=== PATIENT | female | born 1980 ===

== ENCOUNTER 2020-08-10 12:30 | Outpatient (RCR) | payer BC, SELFPAY ==
--- NOTE | 2020-07-23 14:01 | PC.ADMIT ---
Addendum entered by Svetlana Desir RN 07/23/20 14:12: Patient gave verbal permission to Fax her a Copy Of her Safety Plan. Does not want it Emailed. Original Note: Patient started the PHP program today on the advise of her therapist d/t mood instability. Patient reports that her mood has been unstable and therapy is not enough to be helpful. Feelings of hopelessness. Denied current SI. Gave verbal permission to email her a copy of her Safety Plan. Patient agreed to utilize safety Plan if feeling unsafe. Patient does have a hx of overdosing on pills with ETOH as a teenager. Medical issues documented. Patient did state that her BP runs low and sometimes faints if she stands up too quickly. Stated her mother has the same issues. Patient fluid intake could improve, education provided. Medication reconciled with patient and patients pharmacy. Pt reports that she has not been taking Gabapentin as prescribed and will take 3 tabs PRN instead of the 1-2 tabs prescribed. Dixie Oliva APRN is aware.
--- NOTE | 2020-07-24 16:48 | HO.PS.ADMBH ---
HPI Chief Complaint: DEPRESSION Sources of Information: patient interviewed and chart reviewed Additional Sources of Information: Eval completed on 07/23/20. 40 yo female, referred by outpatient therapist. Reports a rapid increase in depressive sx with irritability, guilt, helplessness, hopelessness,fatigue- intense and overwhelming where at times she is not able to speak clearly has emotioal numbing (gabapentin helps with these episodes), anhedonia, sleep disturbance,SI one week HEAD CUSTODIAN. Reports hx of mild hypomanic episodes where from time to time she has bursts of energy, ideas which ends with her feeling foolish regarding her goals during that brief time. Reports an addiction history- last week almost slipped with nicotine, attempting to self-regulate with food as well. 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 Past Psychiatric History: Therapy with Alex Duncan for ~7 years, PCP is her prescribing clinician Yandy Skinner ~10 years. IP 21 years ago s/p OP Trials-Prozac, Zoloft, Remeron, Buspirone, Wellbutrin, Seroquel, Hydroxyzine, Clonidine, Propranolol, Ativan, Effexor Medical Evaluation Reviewed: No PHP Pt. No medical assessment available from PCP at this time. [facility] Medical History (Updated 07/24/20 @ 17:18 by Emperatriz York APRN) Bulging discs Intussusception intestine Irritable bowel syndrome (IBS) Migraine Sciatica Spinal stenosis Tennis elbow Surgical History (Updated 07/23/20 @ 13:42 by Svetlana Desir RN) deliv NOS-unsp Family History: Depression, Anxiety, Addiction Social History: Pt works as a psychotropic medication prescriber. She is , lives with spouse and 2 childhren Substance History: Nicotine-stopped 2002; Albuterol over use-stopped 2003; ADHD medications-stopped 1998; Temazepam overuse-stopped 2002; Pain meds-stopped 2003; Acid, Mushrooms-stopped 2001; Alcohol-stopped 2002; hx of compulsions-sexual by history, not current and video games-stopped 2018. Hx of OD in adolescence-alcohol/sleeping pills. Attends AA, has sponsorship Trauma History: Emotional- father Environmental-invalidation Meds/Allergies Meds Home Medications Medication Instructions Recorded Confirmed Type bupropion HCl [Wellbutrin XL] 450 mg PO QAM 07/23/20 07/23/20 History oslrijivqo-tmccxstvdwwfu-erwp 1 cap PO Q6H PRN 07/23/20 07/23/20 History diphenhydramine HCl [Benadryl] 25 mg PO BEDTIME PRN 07/23/20 07/23/20 History gabapentin 1 - 2 dose PO DAILY PRN 07/23/20 07/23/20 History melatonin 3 - 6 mg PO BEDTIME 07/23/20 07/23/20 History ondansetron 4 mg PO Q8H PRN 07/23/20 07/23/20 History sertraline 200 mg PO DAILY 07/23/20 07/23/20 History Allergies Allergies Allergy/AdvReac Type Severity Reaction Status Date / Time No Known Allergies Allergy Verified 07/23/20 08:58 Mental Status Exam Mental Status Exam Narrative: Well-engaged. Discussed difficulty in being a clinician and patient. Patient Appearance: Well Grooomed, Fatigued and Appropriate Patient Orientation: Person, Place, Time and Situation Level of Consciousness: Awake, Appropriate and Alert Patient Behavior: Appropriate, Cooperative, Anxious, Fatigued and Good Eye Contact Mood Description: Calm, Appropriate, Depressed, Anxious, Sad and Apprehensive Affect Description: Calm, Depressed, Flat, Sad, Nervous and Apprehensive Patient Cognition Impaired: No Ability to Follow Directions: Excellent Speech Pattern: Clear, Appropriate and Coherent Memory Description: Intact Hallucinations: None Delusions: Not Present Thought Process: Intact, Rumination (worry) and Goal Oriented Thought Content: positive for Intact, positive for Logical and positive for Suicidal Ideation (HEAD CUSTODIAN) Depressive Symptoms: Increased Anxiety Judgement: Good Assessment & Plan Patient educated on: therapeutic strategies Informed Consent: understands Reason for continued partial hosp. stay Substantial Risk for: inability to function and rapid decompensation Certification I certify that partial hospital treatment is medically necessary due to the symptoms and problems resulting from the patient's mental illness and the failure to treat the patient at the partial hospital level of care would likely result in the patient requiring inpatient psychiatric care which could not be prevented at a less intensive level of care.
--- NOTE | 2020-07-27 10:14 | HO.PHPPROGNO ---
Subjective Subjective Date of Service: 07/26/20 Reason For Visit: DEPRESSION Interim History: Carina reports she has initiated Lamictal and is tolerating it. She is more comfortable with the group process and today describes therapy group as an ecosystem of healing for her. She is able to be present as herself and offer her expertise guided by her experience which she finds healing for her. Yesterday was difficult with some SI without plan or intent. She was able to reach out to her therapist. She has also been able to allow some help to come into work so she may have time for self care. Medication Compliance: Yes Side effects from medications: No Attending Groups: Yes Mental Status Exam Mental Status Exam Patient Orientation: Person, Place, Time and Situation Level of Consciousness: Awake and Appropriate Patient Behavior: Appropriate Mood Description: Calm, Appropriate and Depressed Affect Description: Calm, Appropriate and Flat Patient Cognition Impaired: No Ability to Follow Directions: Excellent Speech Pattern: Clear Memory Description: Intact Hallucinations: None Delusions: Not Present Thought Process: Intact Thought Content: positive for Intact Depressive Symptoms: Increased Anxiety, Diff. Making Decisions, Hopelessness, Unhappiness, Increased Fatigue, Thoughts of /Suicide (passive-yesterday with intervention by OP team), Loss of Energy and Difficulty Concentrating (at times) Judgement: Good Assessment & Plan Patient educated on: medication risk/benefits Guardian/Caregiver educated on: medication risk/benefits Informed Consent: understands and further education needed Reason for contiued partial hosp. stay Substantial Risk for: harm to self, inability to function and rapid decompensation Certification I certify that partial hospital treatment is medically necessary due to the symptoms and problems resulting from the patient's mental illness and the failure to treat the patient at the partial hospital level of care would likely result in the patient requiring inpatient psychiatric care which could not be prevented at a less intensive level of care. Greater than 50% of the session was spent on counseling and/or coordination of care Discharge Plan Discharge Attending provider: Nataliia Narvaez Additional Instructions: 07/23/20: Lamictal 25 mg daily initiation Medications: New lamotrigine [Lamictal] 25 mg tablet 25 mg PO DAILY 14 Days Qty: 14 RF: 0 bupropion HCl [Wellbutrin XL] 300 mg tablet extended release 24 hr 300 mg PO QAM Qty: 30 RF: 0 No Action sertraline 100 mg Tablet 200 mg PO DAILY RF: 0 bupropion HCl [Wellbutrin XL] 150 mg Tablet Extended Release 24 Hr 450 mg PO QAM RF: 0 gabapentin 100 mg 1 - 2 dose PO DAILY PRN (Reason: Anxiety) RF: 0 melatonin 3 mg Capsule 3 - 6 mg PO BEDTIME RF: 0 emycxoixso-zelvmtgtjaven-aier 50-325-40 mg Capsule 1 cap PO Q6H PRN (Reason: Migraine Headache) RF: 0 diphenhydramine HCl [Benadryl] 25 mg Capsule 25 mg PO BEDTIME PRN (Reason: Insomnia) RF: 0 ondansetron 4 mg Tablet,Disintegrating 4 mg PO Q8H PRN (Reason: Nausea) RF: 0
--- NOTE | 2020-07-31 16:47 | HO.PHPPROGNO ---
Subjective Subjective Date of Service: 07/31/20 Reason For Visit: DEPRESSION Interim History: Carina describes a tough weekend. She increased Gabapentin to 300 mg bid. Reports symptoms of panic, racing thoughts, increase in depression, suicidal thoughts without plan or intent. Feeling vulnerable in current world environment with multiple stressors. Working in AA on spiritual awakening. Gabapentin increase felt helpful, denies numbing. Mood however over the weekend felt labile. Discussion of ongoing Lamictal titration-scheduled to increase to 50 mg-no adverse effects. Discussion of augmentation-Abilify (used by history), Rexulti, possibly [place] Medication Compliance: Yes Side effects from medications: No Attending Groups: Yes (Attending AA over the weekend-virtual) Review of Systems Review of Systems Yes all other systems are reviewed and are negative Psychiatric: Reports anxiety, Reports depression, Reports difficulty concentrating, Reports mood swings, Reports panic attacks, Reports suicidal ideation (passive SI without plan or intent) and Reports other (racing thoughts, lability) Mental Status Exam Mental Status Exam Patient Orientation: Person, Place, Time and Situation Level of Consciousness: Awake, Appropriate and Alert Patient Behavior: Appropriate, Talkative, Cooperative and Anxious Mood Description: Calm, Appropriate, Constricted, Anxious, Sad and Nervous Affect Description: Calm, Appropriate, Constricted, Anxious, Sad and Nervous Patient Cognition Impaired: No Ability to Follow Directions: Excellent Speech Pattern: Clear and Appropriate Memory Description: Intact Hallucinations: None Delusions: Not Present Thought Process: Intact Thought Content: positive for Intact and positive for Goal Oriented Depressive Symptoms: Increased Anxiety Judgement: Good Assessment & Plan Patient educated on: medication risk/benefits and therapeutic strategies Informed Consent: understands and further education needed Reason for contiued partial hosp. stay Substantial Risk for: inability to function and rapid decompensation Certification I certify that partial hospital treatment is medically necessary due to the symptoms and problems resulting from the patient's mental illness and the failure to treat the patient at the partial hospital level of care would likely result in the patient requiring inpatient psychiatric care which could not be prevented at a less intensive level of care. Greater than 50% of the session was spent on counseling and/or coordination of care Discharge Plan Discharge Attending provider: Nataliia Narvaez Additional Instructions: 07/23/20: Lamictal 25 mg daily initiation 07/31/20 [place] 150 mg HS Medications: New lamotrigine [Lamictal] 25 mg tablet 25 mg PO DAILY 14 Days Qty: 14 RF: 0 bupropion HCl [Wellbutrin XL] 300 mg tablet extended release 24 hr 300 mg PO QAM Qty: 30 RF: 0 lithium carbonate 150 mg capsule 150 mg PO BEDTIME Qty: 14 RF: 0 No Action sertraline 100 mg Tablet 200 mg PO DAILY RF: 0 bupropion HCl [Wellbutrin XL] 150 mg Tablet Extended Release 24 Hr 450 mg PO QAM RF: 0 gabapentin 100 mg 1 - 2 dose PO DAILY PRN (Reason: Anxiety) RF: 0 melatonin 3 mg Capsule 3 - 6 mg PO BEDTIME RF: 0 xcikastwqx-laafacxdkiwgs-recy 50-325-40 mg Capsule 1 cap PO Q6H PRN (Reason: Migraine Headache) RF: 0 diphenhydramine HCl [Benadryl] 25 mg Capsule 25 mg PO BEDTIME PRN (Reason: Insomnia) RF: 0 ondansetron 4 mg Tablet,Disintegrating 4 mg PO Q8H PRN (Reason: Nausea) RF: 0
--- NOTE | 2020-08-03 15:46 | P.PNPSP_ITS ---
Subjective Subjective Date of Service: 08/03/20 Reason For Visit: DEPRESSION Interim History: Carina reports depressive sx have lifted. She is more actively engaged in AA and in a better place that when she initiated PHP. However, there is a possible med SE. Sx started before initiation of [place]. Reports L Foot, outer arch area a feeling of vibration continuously since 07/31. By hx Topiramate caused RLS-with pt's recent increase in Gabapentin along with Lamictal she wonders if this is a SE. Also, she reports a hx of spinal stenosis and bulging discs. She stopped PT and is scheduled to re-initiate this treatment the week of . Discussed possible interventions Medication Compliance: Yes Side effects from medications: Yes (possibly, refer to above history) Attending Groups: Yes Review of Systems Musculoskeletal: Reports as per HPI and Reports other (Left foot, outer arch, vibration) Psychiatric: Reports no additional psychiatric complaints Mental Status Exam Mental Status Exam Patient Orientation: Person, Place, Time and Situation Level of Consciousness: Awake and Alert Patient Behavior: Appropriate and Cooperative Mood Description: Calm, Appropriate and Apprehensive Affect Description: Calm, Appropriate and Apprehensive Patient Cognition Impaired: No Ability to Follow Directions: Excellent Speech Pattern: Clear, Appropriate and Spontaneous Speech Memory Description: Intact Hallucinations: None Delusions: Not Present Thought Process: Intact Thought Content: positive for Intact Judgement: Good Assessment & Plan Patient educated on: medication risk/benefits and therapeutic strategies Informed Consent: understands and further education needed Reason for contiued partial hosp. stay Substantial Risk for: inability to function and rapid decompensation Certification I certify that partial hospital treatment is medically necessary due to the symptoms and problems resulting from the patient's mental illness and the failure to treat the patient at the partial hospital level of care would likely result in the patient requiring inpatient psychiatric care which could not be prevented at a less intensive level of care. Greater than 50% of the session was spent on counseling and/or coordination of care Discharge Plan Discharge Attending provider: Prieto Bardales Additional Instructions: 07/23/20: Lamictal 25 mg daily initiation 07/31/20 [place] 150 mg HS 08/03/20 Hold Lamictal 08/03,,18. Re-Eval L Foot sx on 08/16 Medications: New lamotrigine [Lamictal] 25 mg tablet 25 mg PO DAILY 14 Days Qty: 14 RF: 0 bupropion HCl [Wellbutrin XL] 300 mg tablet extended release 24 hr 300 mg PO QAM Qty: 30 RF: 0 lithium carbonate 150 mg capsule 150 mg PO BEDTIME Qty: 14 RF: 0 No Action sertraline 100 mg Tablet 200 mg PO DAILY RF: 0 bupropion HCl [Wellbutrin XL] 150 mg Tablet Extended Release 24 Hr 450 mg PO QAM RF: 0 gabapentin 100 mg 1 - 2 dose PO DAILY PRN (Reason: Anxiety) RF: 0 melatonin 3 mg Capsule 3 - 6 mg PO BEDTIME RF: 0 zzehsothul-rqktdtbaqedja-zgez 50-325-40 mg Capsule 1 cap PO Q6H PRN (Reason: Migraine Headache) RF: 0 diphenhydramine HCl [Benadryl] 25 mg Capsule 25 mg PO BEDTIME PRN (Reason: Insomnia) RF: 0 ondansetron 4 mg Tablet,Disintegrating 4 mg PO Q8H PRN (Reason: Nausea) RF: 0
--- NOTE | 2020-08-06 16:10 | PM.EVENT ---
Event Note Event Note: Message left for pt today to reivew symptoms discussed on 08/03/20 and holding of Lamictal.
--- NOTE | 2020-08-08 10:02 | PM.EVENT ---
Event Note Event Note: Call to pt on 08/06/20 to review possible SE from Lamictal which were reported on 08/03/20. Message left. Pt did not return this call.
--- NOTE | 2020-08-08 21:17 | HO.PHPPROGNO ---
Subjective Subjective Date of Service: 08/08/20 Reason For Visit: DEPRESSION Interim History: Carina reports that ankle vibration symptoms stopped when she stopped Lamictal. States a group member convinced her she will lose her thyroid is she continues [place] so she has stopped this as well. She reports feeling improved, and want to see how she does-we discussed Rexulti trial to augment regime. She agreed. (hx of Abilify with success-however she does not want to take antipsychotics). Medication Compliance: No Side effects from medications: Yes Attending Groups: Yes Review of Systems Psychiatric: Reports no additional psychiatric complaints Mental Status Exam Mental Status Exam Patient Orientation: Person, Place and Time Level of Consciousness: Awake and Appropriate Patient Behavior: Appropriate Mood Description: Calm and Flat Affect Description: Flat Patient Cognition Impaired: No Ability to Follow Directions: Good Speech Pattern: Clear Memory Description: Intact Hallucinations: None Delusions: Not Present Thought Process: Intact Thought Content: positive for Intact Depressive Symptoms: Diff. Making Decisions Judgement: Good Assessment & Plan Patient educated on: medication risk/benefits Informed Consent: understands Reason for contiued partial hosp. stay Substantial Risk for: harm to self, inability to function and rapid decompensation Certification I certify that partial hospital treatment is medically necessary due to the symptoms and problems resulting from the patient's mental illness and the failure to treat the patient at the partial hospital level of care would likely result in the patient requiring inpatient psychiatric care which could not be prevented at a less intensive level of care. Greater than 50% of the session was spent on counseling and/or coordination of care Discharge Plan Discharge Attending provider: Prieto Bardales Additional Instructions: 07/23/20: Lamictal 25 mg daily initiation 07/31/20 [place] 150 mg HS 08/03/20 Hold Lamictal 08/03,,18. Re-Eval L Foot sx on 08/1608/08/20: Discontinue [place], Lamictal. Rexulti 0.25 mg daily Medications: New bupropion HCl [Wellbutrin XL] 300 mg tablet extended release 24 hr 300 mg PO QAM Qty: 30 RF: 0 [place] 0.25 mg tablet 0.25 mg PO DAILY Qty: 14 RF: 0 No Action sertraline 100 mg Tablet 200 mg PO DAILY RF: 0 bupropion HCl [Wellbutrin XL] 150 mg Tablet Extended Release 24 Hr 450 mg PO QAM RF: 0 gabapentin 100 mg 1 - 2 dose PO DAILY PRN (Reason: Anxiety) RF: 0 melatonin 3 mg Capsule 3 - 6 mg PO BEDTIME RF: 0 vglkedssus-wrqxykotiiygm-zzbg 50-325-40 mg Capsule 1 cap PO Q6H PRN (Reason: Migraine Headache) RF: 0 diphenhydramine HCl [Benadryl] 25 mg Capsule 25 mg PO BEDTIME PRN (Reason: Insomnia) RF: 0 ondansetron 4 mg Tablet,Disintegrating 4 mg PO Q8H PRN (Reason: Nausea) RF: 0
== END 2020-08-10 23:55 | disposition home or self-care (01) ==
LOC: HO.PHPA 12:30
PROVIDERS: Visit Provider Psychiatry & Neurology Psychiatry
DX: F32.9 Major depressive disorder, single episode, unspecified (principal)
CPT/HCPCS: 90792; 90853; 99213